=== PATIENT | female | born 1980 | race Caucasian/White ===

== ENCOUNTER → 2018-06-13 14:36 | Outpatient (CLI) | payer OTHER, SELFPAY | DX: Z23 Encounter for immunization (principal) | CPT/HCPCS: 90471; 90686 ==

== ENCOUNTER → 2019-08-10 14:44 | Outpatient (CLI) | payer OTHER, SELFPAY | PROVIDERS: PCP Internal Medicine | DX: Z23 Encounter for immunization (principal) | CPT/HCPCS: 90471; 90682 ==

== ENCOUNTER → 2020-07-18 13:48 | Outpatient (CLI) | payer OTHER, SELFPAY ==
--- NOTE | 2020-07-18 13:50 | DI.RAD.S_ITS ---
PROCEDURE: XR LUMBAR SPINE 2-3V INDICATIONS: Persistent lower back pain after fall TECHNIQUE: 3 views of the lumbar spine were acquired. COMPARISON: None. FINDINGS: Bones: 5 [id number] vertebrae are present. Trace multilevel retrolisthesis. Multilevel disc degeneration, moderate to severe at the L4-L5 and L5-S1 levels. Moderate L4-L5 and L5-S1 facet joint arthropathy. No vertebral body compression fractures. No suspicious bony lesions. Soft tissues: Overlying bowel gas pattern is normal. No suspicious soft tissue calcifications. IMPRESSION: Multilevel spondylosis, most notably at the L4-L5 and L5-S1 levels. Dictated by: Rajiv Queen [facility] Interpreted: Natalie Lynn MD on 07/18/2020 at 15:02 Approved by: Natalie Lynn M.D. on 07/18/2020 at 15:32
== END ==
PROVIDERS: PCP Family Medicine; Referring Provider Family Medicine; Visit Provider Family Medicine
DX: M54.5 Low back pain (principal); M47.816 Spondylosis without myelopathy or radiculopathy, lumbar region; M47.817 Spondylosis without myelopathy or radiculopathy, lumbosacral region
CPT/HCPCS: 72100

== ENCOUNTER → 2020-08-13 08:36 | Outpatient (CLI) | payer OTHER, SELFPAY ==
[2020-08-13 09:40] LABS: COVID19 -Nasal RAPID Negative (Negative)
== END ==
PROVIDERS: PCP Family Medicine; Visit Provider Student in an Organized Health Care Education/Training Program
DX: Z11.59 Encounter for screening for other viral diseases (principal); R50.9 Fever, unspecified
CPT/HCPCS: 87635

== ENCOUNTER → 2020-08-21 | Outpatient (CLI) | payer OTHER, SELFPAY | PROVIDERS: PCP Family Medicine; Referring Provider Internal Medicine; Visit Provider Internal Medicine | DX: Z23 Encounter for immunization (principal) | CPT/HCPCS: 90471; 90682 ==

== ENCOUNTER → 2020-09-08 09:11 | Outpatient (CLI) | payer OTHER, SELFPAY ==
[2020-09-08 09:49] LABS: Bacteria Urine None Seen; WBC Urine None Seen (0-5/HPF)
[2020-09-08 10:41] LABS: Appearance Urine UA SL CLOUDY; Bilirubin Urine UA NEGATIVE (NEGATIVE); Color Urine UA YELLOW; Glucose Urine UA NEGATIVE (Negative); Ketones Urine UA NEGATIVE (NEGATIVE); Leukocyte Esterase Urine UA NEGATIVE (NEGATIVE); Nitrite Urine UA NEGATIVE (Negative); Occult Blood Urine UA TRACE-LYSED (Negative); Protein Urine UA NEGATIVE (Negative); Specific Gravity Urine UA 1.025 (1.000-1.035); Urobilinogen Urine UA 0.2 E.U./dL (0.2)
[2020-09-08 10:42] LABS: Hemoglobin A1C% w Est Avg Glu 5.4 % (4.0-6.0)
[2020-09-08 10:53] LABS: Add Manual Diff / Slide Review NO; Basophils Absolute Auto 100 /uL (0-100); Eosinophils Absolute Auto 300 /uL (0-450); Eosinophils Percent Auto 2.6 % (2-4); Hematocrit 41.7 % (36-46); Hemoglobin 14.1 g/dL (12.0-16.0); Lymphocytes Absolute Auto 2900 /uL (1100-4500); Lymphocytes Percent Auto 28.4 % (25-40); Mean Corpuscular HGB Conc 33.9 % (30-36); Mean Corpuscular Hemoglobin 30.1 PG (26-34); Mean Corpuscular Volume 88.8 fL (80-100); Monocytes Absolute Auto 600 /uL (0-900); Monocytes Percent Auto 5.6 % (3-14); Neutrophils Absolute Auto 6500 /uL (1500-7000); Neutrophils Percent Auto 62.4 % (50-75); Platelet Count 295 X10^3/uL (150-400); Red Blood Cell Count 4.69 X10^6/uL (4.0-5.2); Red Cell Distribution Width 13.9 % (11.6-14.8); White Blood Cell Count 10.4 X10^3/uL (4.5-11.0)
[2020-09-08 10:54] LABS: Culture Indicated Urine Cult Not Indicated; RBC Urine 1-5/HPF (0-5/HPF); Squamous Epithelial Cell Urine 10-30 /HPF (0-5/HPF)
[2020-09-08 11:10] LABS: Prothrombin Time 11.6 SECONDS (10.1-12.7)
[2020-09-08 11:12] LABS: PTT Partial Thromboplastin Tim 32 SECONDS (26.4-36.2)
[2020-09-08 11:16] LABS: HEMOLYSIS 33 (0-50); Iron 64 ug/dL (37-170)
[2020-09-08 11:20] LABS: Alanine Aminotransferase 29 IU/L (<35); Albumin Globulin Ratio 1.3 (1.0-2.8); Alkaline Phosphatase 60 U/L (38-126); Aspartate Aminotransferase 23 IU/L (14-36); BUN Creatinine Ratio 25.5 (6-22); Bilirubin Total 0.3 mg/dL (0.2-1.3); Blood Urea Nitrogen 13 mg/dL (7-17); Calcium 8.8 mg/dL (8.4-10.2); Carbon Dioxide 28 mmol/L (22-32); Chloride 104 mmol/L (98-107); Cholesterol 180 mg/dL (140-199); Estimated Glomerular Filt Rate > 60.0 mL/min (>60); Gamma Glutamyl Transpeptidase 17 U/L (12-43); Globulin 3.2 g/dL (1.7-4.1); Glucose 90 mg/dL (70-100); HDL Cholesterol 40 mg/dL (40-60); HEMOLYSIS < 15 (0-50); LDL Cholesterol Calculated 119 mg/dL (<100); Lactate Dehydrogenase 411 U/L (313-618); Magnesium 1.9 mg/dL (1.6-2.3); Potassium 3.9 mmol/L (3.4-5.1); Sodium 137 mmol/L (137-145); Total Protein 7.2 g/dL (6.3-8.2); Triglycerides 103 mg/dL (35-150); Uric Acid 5.1 mg/dL (2.5-6.2)
[2020-09-08 11:29] LABS: Percent Iron Saturation 21 % (15-50); Total Iron Binding Capacity 300 ug/dL (265-497); Transferrin 221 mg/dL (206-381)
[2020-09-08 11:52] LABS: Thyroid Stimulating Hormone 1.63 uIU/mL (0.47-4.68)
[2020-09-08 12:10] LABS: Vitamin D 25 Hydroxy (D3) 23.5 ng/mL (30.0-100.0)
[2020-09-08 12:22] LABS: Folate 8.4 ng/mL (2.76-20.0); Vitamin B12 329 pg/mL (239-931)
[2020-09-09 06:46] LABS: Parathyroid Hormone Int 53 pg/mL (15-65)
[2020-09-09 20:36] LABS: Zinc 75 ug/dL (56-134)
[2020-09-12 01:09] LABS: Vitamin A 45.7 ug/dL (18.9-57.3)
== END ==
PROVIDERS: PCP Family Medicine; Referring Provider Surgery; Visit Provider Surgery
DX: R01.1 Cardiac murmur, unspecified (principal); G57.01 Lesion of sciatic nerve, right lower limb; R06.02 Shortness of breath; R12 Heartburn; R53.83 Other fatigue; R42 Dizziness and giddiness
CPT/HCPCS: 36415; 80053; 80061; 81001; 82306; 82607; 82746; 82977; 83036; 83540; 83550; 83615; 83735; 83970; 84100; 84443; 84550; 84590; 84630; 85025; 85610; 85730

== ENCOUNTER → 2020-09-13 10:17 | Outpatient (CLI) | payer OTHER, SELFPAY ==
[2020-09-13 14:26] LABS: Calcium 24 Hour Urine 119 mg/day (100-300); Calcium Urine Random 7.2 mg/dL; Collection Time Urine 24 Hours; Total Volume Urine 1650 mL
== END ==
PROVIDERS: PCP Family Medicine; Referring Provider Surgery; Visit Provider Surgery
DX: R01.1 Cardiac murmur, unspecified (principal); G57.00 Lesion of sciatic nerve, unspecified lower limb
CPT/HCPCS: 82340

== ENCOUNTER → 2020-10-10 09:54 | Outpatient (CLI) | payer OTHER, SELFPAY | PROVIDERS: PCP Family Medicine; Referring Provider Surgery; Visit Provider Surgery | DX: R01.1 Cardiac murmur, unspecified (principal); G51.0 Bell's palsy | CPT/HCPCS: 93005; 93010 ==

== ENCOUNTER → 2020-10-16 07:57 | Outpatient (CLI) | payer OTHER, SELFPAY ==
--- NOTE | 2020-10-16 07:58 | DI.ECHO.S_ITS ---
[facility] +---------+ : : [address] : [place] : : : : [id number] : : : : Phone: [phone]+ Echocardiogram Report + + :Name: CHRISS CEBALLOS Study Date: 10/16/2020 Height: 65 in : :[facility] ReadingLocation: Weight: 336 lb : : Gender: Female BSA: 2.5 m2 : :: 1980 Age: 39 yrs BP: 146/97 mmHg: :Reason For Study: BARIATRIC SURGICAL REVIEW : :Ordering Physician: NEREIDA, : :JASBIR Performed By: Seema Cain : :Referring: JASBIR PADRON : + + Interpretation Summary This is a technically difficult study enhanced by Definity echocontrast. Normal sinus rhythm. Normal LV size, wall thickness, wall motion and LV systolic function. EF is 55-60%. Normal chamber sizes. No valvular abnormalities. No prior study available for comparison. Procedure: A two-dimensional transthoracic echocardiogram with color flow and Doppler was performed. The study quality was technically adequate. A contrast injection of Definity was performed to improve assessment of LV function. Contrast was injected into an intravenous site in the left arm. Definity used after patient education and consent. Patient denied any symptoms after the use of Definity. The patient was in sinus rhythm with heart rates between 57-71 bpm during the exam. Left Ventricle: The left ventricle is normal in size and wall thickness. The ejection fraction is estimated to be 55-60%. Diastolic parameters suggest probable normal left ventricular diastolic function and normal filling pressures. Right Ventricle: The right ventricle is normal in size and function. Atria: Both atria are normal in size. There is no Doppler evidence for an interatrial shunt. Mitral Valve: The mitral valve is normal in structure and function. There is mild mitral regurgitation. Aortic Valve: The aortic valve is trileaflet. The aortic valve opens well. There is no aortic valve stenosis. No aortic regurgitation is present. Tricuspid Valve: The tricuspid valve is normal in structure and function. Pulmonary artery pressures cannot be estimated because of the lack of a measurable TR jet velocity. There is mild tricuspid regurgitation. Pulmonic Valve: The pulmonic valve leaflets are thin and pliable; valve motion is normal. There is no pulmonic valvular regurgitation. Great Vessels: The aortic root is normal size. The dimensions of the ascending aorta are normal. The inferior vena cava was not well visualized. Pericardium/ Pleura There is no pericardial effusion. There is no pleural effusion. MMode/2D Measurements & Calculations LVIDd: 4.8 cm LVOT diam: 2.0 cm LVIDs: 3.6 cm Ao root diam: 3.3 cm FS: 25.5 % asc Aorta Diam: 3.2 cm EPSS: 0.75 cm Ao Arch Diam (Prox Trans): 2.8 cm IVSd: 0.77 cm LVPWd: 0.80 cm LV rollins. diameter/BSA (cm/m^2): 1.9 LV sys. diameter/BSA (cm/m^2): 1.4 LA A2 area: 23.4 cm2 RA long axis: 4.3 cm LA A4 area: 18.3 cm2 RA area: 13.7 cm2 LA length (vol): 5.0 cm RA vol: 36.9 ml LA vol: 72.8 ml RA : 15.0 ml/m2 LA vol index: 29.5 ml/m2 RVD1 (basal): 3.3 cm TAPSE: 2.0 cm Doppler Measurements & Calculations Ao V2 max: 120.9 cm/sec LVOT Max Ariel: 74.2 cm/sec Ao V2 mean: 83.9 cm/sec LV V1 max P.2 mmHg Ao max P.8 mmHg LV V1 VTI: 15.3 cm Ao mean P.1 mmHg HENRRY(I,D): 2.1 cm2 Ao V2 VTI: 23.3 cm HENRRY(V,D): 2.0 cm2 sev ratio: 0.65 HENRRY indexed to BSA (cm^2/m^2): 0.86 MV E max ariel: 75.5 cm/sec PA V2 max: 72.0 cm/sec MV A max ariel: 54.4 cm/sec PA V2 mean: 47.0 cm/sec MV E/A: 1.4 PA mean P.0 mmHg Med Peak E' Ariel: 11.7 cm/sec PA pr(Accel): 20.8 mmHg E/E' med: 6.5 Lat Peak E' Ariel: 12.6 cm/sec E/E' lat: 6.0 E/e' average: 6.2 MV dec time: 0.23 sec SV(OT): 49.5 ml Electronically signed by: Melany Langley M.D. on Reading Physician:10/17/2020 03:58 AM
== END ==
PROVIDERS: PCP Family Medicine; Referring Provider Family Medicine; Visit Provider Family Medicine
DX: Z01.818 Encounter for other preprocedural examination (principal); I08.1 Rheumatic disorders of both mitral and tricuspid valves
CPT/HCPCS: C8929; Q9957

== ENCOUNTER → 2020-11-06 11:49 | Outpatient (CLI) | payer OTHER, SELFPAY ==
--- NOTE | 2020-11-06 | DI.RAD.S_ITS ---
PROCEDURE: XR HIP W PEL IF DONE RT 2V INDICATIONS: PAIN TO RIGHT HIP TECHNIQUE: AP pelvis with lateral view(s) of the right hip(s). COMPARISON: None. FINDINGS: Bones: No fractures or dislocations. Pelvic ring appears intact. No suspicious bony lesions. Mild periarticular osteophyte formation at the bilateral hip joints. Soft tissues: The visualized bowel gas pattern is normal. No suspicious soft tissue calcifications. IMPRESSION: Bilateral hip osteoarthritis. No acute fracture. No osseous lesion. If symptoms and/or clinical suspicion for pathology persist, further assessment with repeat, or advanced imaging (e.g., CT, MRI, or bone scan) may be helpful for further assessment. Dictated by: Natalie Lynn M.D. on 11/06/2020 at 15:56 Approved by: Natalie Lynn M.D. on 11/06/2020 at 15:57
== END ==
PROVIDERS: PCP Family Medicine; Referring Provider Student in an Organized Health Care Education/Training Program; Visit Provider Student in an Organized Health Care Education/Training Program
DX: M16.0 Bilateral primary osteoarthritis of hip (principal)
CPT/HCPCS: 73502

== ENCOUNTER → 2020-12-01 14:16 | Outpatient (CLI) | payer OTHER, SELFPAY ==
[2020-12-01] MEDS: COVID-19 VACC, Ad26(JANSSEN)/PF 0.5 ML IM (14:22)
== END ==
PROVIDERS: PCP Family Medicine; Visit Provider Internal Medicine
DX: Z23 Encounter for immunization (principal)
CPT/HCPCS: 0031A; 91303

== ENCOUNTER → 2021-06-12 06:51 | Outpatient (CLI) | payer OTHER, SELFPAY ==
[2021-06-12 08:04] LABS: Add Manual Diff / Slide Review NO; Basophils Absolute Auto 0 /uL (0-100); Basophils Percent Auto 0.6 % (0-2); Eosinophils Absolute Auto 200 /uL (0-450); Eosinophils Percent Auto 2.6 % (2-4); Hematocrit 41.8 % (36-46); Hemoglobin 13.8 g/dL (12.0-16.0); Lymphocytes Absolute Auto 1900 /uL (1100-4500); Lymphocytes Percent Auto 24.4 % (25-40); Mean Corpuscular HGB Conc 32.9 % (30-36); Mean Corpuscular Hemoglobin 30.2 PG (26-34); Mean Corpuscular Volume 91.8 fL (80-100); Monocytes Absolute Auto 700 /uL (0-900); Monocytes Percent Auto 8.4 % (3-14); Neutrophils Absolute Auto 5000 /uL (1500-7000); Platelet Count 307 X10^3/uL (150-400); Red Blood Cell Count 4.56 X10^6/uL (4.0-5.2); Red Cell Distribution Width 13.9 % (11.6-14.8); White Blood Cell Count 7.8 X10^3/uL (4.5-11.0)
[2021-06-12 08:11] LABS: Hemoglobin A1C% w Est Avg Glu 4.9 % (4.0-6.0)
[2021-06-12 09:17] LABS: HEMOLYSIS < 15 (0-50); Iron 60 ug/dL (37-170)
[2021-06-12 09:20] LABS: Alanine Aminotransferase 37 IU/L (<35); Albumin 4.1 g/dL (3.5-5.0); Albumin Globulin Ratio 1.5 (1.0-2.8); Alkaline Phosphatase 68 U/L (38-126); Aspartate Aminotransferase 33 IU/L (14-36); BUN Creatinine Ratio 24.5 (6-22); Bilirubin Total 0.2 mg/dL (0.2-1.3); Blood Urea Nitrogen 13 mg/dL (7-17); Calcium 9.4 mg/dL (8.4-10.2); Carbon Dioxide 33 mmol/L (22-32); Chloride 102 mmol/L (98-107); Cholesterol 161 mg/dL (140-199); Estimated Glomerular Filt Rate > 60.0 mL/min (>60); Gamma Glutamyl Transpeptidase 14 U/L (12-43); Globulin 2.7 g/dL (1.7-4.1); Glucose 87 mg/dL (70-100); HDL Cholesterol 35 mg/dL (40-60); HEMOLYSIS < 15 (0-50); LDL Cholesterol Calculated 96 mg/dL (<100); Lactate Dehydrogenase 483 U/L (313-618); Magnesium 1.9 mg/dL (1.6-2.3); Phosphorous 3.4 mg/dL (2.5-4.5); Potassium 4.5 mmol/L (3.4-5.1); Sodium 138 mmol/L (137-145); Total Protein 6.8 g/dL (6.3-8.2); Triglycerides 150 mg/dL (35-150); Uric Acid 4.2 mg/dL (2.5-6.2)
[2021-06-12 09:28] LABS: Percent Iron Saturation 22 % (15-50); Total Iron Binding Capacity 269 ug/dL (265-497); Transferrin 206 mg/dL (206-381)
[2021-06-12 09:31] LABS: Vitamin D 25 Hydroxy (D3) 91.8 ng/mL (30.0-100.0)
[2021-06-12 09:50] LABS: Thyroid Stimulating Hormone 1.36 uIU/mL (0.47-4.68)
[2021-06-12 09:53] LABS: Ferritin 102 ng/mL (6-137)
[2021-06-12 10:24] LABS: Folate 3.2 ng/mL (2.76-20.0); Vitamin B12 906 pg/mL (239-931)
[2021-06-13 08:15] LABS: Parathyroid Hormone Int 36 pg/mL (15-65)
[2021-06-13 21:51] LABS: Zinc 58 ug/dL (44-115)
[2021-06-16 08:13] LABS: Vitamin A 42.5 ug/dL (18.9-57.3)
== END ==
PROVIDERS: PCP Family Medicine; Referring Provider Surgery; Visit Provider Surgery
DX: K91.2 Postsurgical malabsorption, not elsewhere classified (principal); Z98.84 Bariatric surgery status; E53.8 Deficiency of other specified B group vitamins; E55.9 Vitamin D deficiency, unspecified
CPT/HCPCS: 36415; 80053; 80061; 82306; 82607; 82728; 82746; 82977; 83036; 83540; 83550; 83615; 83735; 83970; 84100; 84443; 84550; 84590; 84630; 85025

== ENCOUNTER → 2021-08-18 18:43 | Outpatient (CLI) | payer OTHER, SELFPAY | PROVIDERS: PCP Family Medicine; Referring Provider Internal Medicine; Visit Provider Internal Medicine | DX: Z23 Encounter for immunization (principal) | CPT/HCPCS: 90471; 90686 ==

== ENCOUNTER → 2022-09-03 13:53 | Outpatient (CLI) | payer OTHER, SELFPAY | PROVIDERS: PCP Family Medicine; Referring Provider Internal Medicine; Visit Provider Internal Medicine | DX: Z23 Encounter for immunization (principal) | CPT/HCPCS: 90471; 90682 ==

== ENCOUNTER → 2023-11-29 11:25 | Outpatient (CLI) | payer OTHER, SELFPAY ==
--- NOTE | 2023-11-29 11:27 | DI.RAD.S_ITS ---
PROCEDURE: XR ANKLE LT MIN 3V INDICATIONS: eval L ankle TECHNIQUE: views of the ankle were acquired. COMPARISON: None. FINDINGS: Bones: Minimally displaced curvilinear ossific density inferior to the distal fibular tip. Additional ossific density adjacent to the medial malleolus. Ankle mortise is normally aligned. No suspicious bony lesions. Soft tissues: No tibiotalar joint effusion. Achilles tendon appears normal. Small plantar and Achilles calcaneal enthesophytes. IMPRESSION: Minimally displaced ossific densities adjacent to the medial and lateral malleoli likely represent age-indeterminate avulsion fractures. Correlate for point tenderness. Dictated by: Lay Giang M.D. on 11/29/2023 at 17:00 Approved by: Lay Giang M.D. on 11/29/2023 at 17:03
== END ==
PROVIDERS: PCP Family Medicine; Referring Provider Family Medicine; Visit Provider Family Medicine
DX: S93.402A Sprain of unspecified ligament of left ankle, initial encounter (principal); X58.XXXA Exposure to other specified factors, initial encounter
CPT/HCPCS: 73610